=== PATIENT | male | born 1985 | race Caucasian/White ===

== ENCOUNTER → 2020-03-01 16:43 | Outpatient (BNVA) | payer BC, SELFPAY | PROVIDERS: Family Provider Family Medicine; PCP Family Medicine; Visit Provider Nurse Practitioner Family | DX: N39.0 Urinary tract infection, site not specified (principal) | CPT/HCPCS: 81000 ==

== ENCOUNTER 2022-11-01 12:19 | Outpatient (CLI) | payer BC, SELFPAY ==
--- NOTE | 2022-11-01 12:41 | CT_ITS ---
WS: [id number] CT ABDOMEN AND PELVIS WITH CONTRAST HISTORY: COLON DIVERTICULITIS TECHNIQUE: Imaging performed of the abdomen and pelvis with IV contrast. Single phase imaging of the abdomen. Coronal and sagittal reformats are submitted. All CT scans at [facility] use at [address] one of these dose optimization techniques: automated exposure control; mA and/or kV adjustment per patient size (includes targeted exams where dose is matched to clinical indication); or iterative re construction. IV CONTRAST: Omnipaque 350; 100 mL IV. Oral contrast: Yes. DLP: 431.93 mGy.cm COMPARISON: None available. Lower thorax: Benign granulomata at the lung bases. Heart is normal size. No hiatal hernia. Liver/biliary system: Normal size with no intrahepatic dilatation. Gallbladder: Normal. No gallstones or wall thickening. No pericholecystic fluid. Pancreas: Normal size pancreas and pancreatic duct. No adjacent inflammation. Spleen: Normal size spleen with several granulomata. Adrenal glands: Normal. Right kidney: Normal. Left kidney: Normal. Aorta: Mild atherosclerosis with no aneurysm. Lymphadenopathy: None. Free fluid: None. GI tract: Normal stomach and small bowel. No obstruction. Normal appendix. In the sigmoid colon there is circumferential wall thickening and numerous diverticula. Mild narrowing of the lumen. No signifi cant adjacent inflammatory stranding. No obstruction. Abdominal wall: Fat containing umbilical hernia. Pelvis: No free fluid or adenopathy within the pelvis. Bones: Unremarkable. CT/CT abdomen pelvis w con* [id number] IMPRESSION: 1. Moderate burden sigmoid diverticulosis. Circumferential wall thickening and narrowing of the sigmoid lumen. No evidence for acute diverticulitis by CT. No abscess or free fluid. 2. Normal appendix. 3. No adenopathy or free fluid.
[2022-11-01] MEDS: iohexol 350 mg/mL 500 mL Btl (per mL) IV (13:04)
[2022-11-01] MEDS: iohexol 350 mg/mL 500 mL Btl (per mL) PO (13:05)
== END 2022-11-01 12:20 | disposition home or self-care (01) ==
PROVIDERS: PCP Family Medicine; Visit Provider Family Medicine
DX: K57.32 Diverticulitis of large intestine without perforation or abscess without bleeding (principal); K57.30 Diverticulosis of large intestine without perforation or abscess without bleeding
CPT/HCPCS: 74177; Q9967